=== PATIENT | female | born 1985 | race Caucasian/White ===

== ENCOUNTER 2018-01-27 22:53 | Emergency (ER) | payer MEDICAID ==
[~2018-01-27] VITALS: Ht 165.1 cm; Wt 111.0 kg
[~2018-01-27 22:53] MED LIST: MINO50CA5 PO
[2018-01-27 23:21] VITALS: BP 127/88
== END 2018-01-27 23:23 | disposition home or self-care (01) ==
LOC: ER 22:53
DX: T81.4XXA Infection following a procedure, initial encounter (principal); L02.211 Cutaneous abscess of abdominal wall; I10 Essential (primary) hypertension; J45.909 Unspecified asthma, uncomplicated; G89.29 Other chronic pain; Z88.8 Allergy status to other drugs, medicaments and biological substances
CPT/HCPCS: 10060; 99284; A6449

== ENCOUNTER 2020-08-08 13:53 | Emergency (ER) | payer MEDICAID ==
[~2020-08-08] VITALS: Ht 165.1 cm; Wt 122.7 kg
[2020-08-08 13:56] VITALS: BP 158/105
[2020-08-08] MEDS ORDERED: fluconazole 100mg tablet PO ONE (14:30)
[2020-08-08] MEDS ORDERED: NYSPWD TP (14:37)
== END 2020-08-08 15:20 | disposition home or self-care (01) ==
LOC: ER 13:53
DX: L30.8 Other specified dermatitis (principal); I10 Essential (primary) hypertension; J45.909 Unspecified asthma, uncomplicated; G89.29 Other chronic pain; Z88.8 Allergy status to other drugs, medicaments and biological substances; Z79.899 Other long term (current) drug therapy
CPT/HCPCS: 99283

== ENCOUNTER 2020-11-08 07:26 | Emergency (ER) | payer MEDICAID ==
[~2020-11-08] VITALS: Ht 165.1 cm; Wt 122.7 kg
[~2020-11-08 07:26] MED LIST changes: +NYSPWD TP
[2020-11-08 07:30] VITALS: BP 192/114
[2020-11-08] MEDS ORDERED: ibuprofen tablet 400 MG TABLET PO ONE (10:50)
[2020-11-08] MEDS ORDERED: IBUP-1984 PO (11:12)
[2020-11-08] MEDS ORDERED: AMOX-422 PO (11:12)
== END 2020-11-08 11:19 | disposition home or self-care (01) ==
LOC: ER 07:28
DX: H61.21 Impacted cerumen, right ear (principal); H66.91 Otitis media, unspecified, right ear; I10 Essential (primary) hypertension; J45.909 Unspecified asthma, uncomplicated; G89.29 Other chronic pain; Z88.8 Allergy status to other drugs, medicaments and biological substances; Z79.2 Long term (current) use of antibiotics; Z79.899 Other long term (current) drug therapy
CPT/HCPCS: 69209; 99284; 99285

== ENCOUNTER 2020-12-11 10:18 | Emergency (ER) | payer MEDICAID ==
[~2020-12-11] VITALS: Ht 165.1 cm; Wt 122.7 kg
[2020-12-11 10:38] VITALS: BP 170/105
== END 2020-12-11 12:00 | disposition home or self-care (01) ==
LOC: ER 10:19
DX: H65.01 Acute serous otitis media, right ear (principal); I10 Essential (primary) hypertension; J45.909 Unspecified asthma, uncomplicated; G89.29 Other chronic pain; Z88.8 Allergy status to other drugs, medicaments and biological substances; Z79.2 Long term (current) use of antibiotics; Z79.899 Other long term (current) drug therapy
CPT/HCPCS: 99281; 99283

== ENCOUNTER 2021-05-26 20:29 | Emergency (ER) | payer MEDICAID ==
[~2021-05-26] VITALS: Ht 165.1 cm; Wt 102.2 kg
[2021-05-26 20:43] VITALS: BP 189/111
[2021-05-26] MEDS ORDERED: dexamethasone sod phosphate 10mg/ml inj IM STA (21:47)
[2021-05-26] MEDS ORDERED: AMOX-422 PO (21:48)
[2021-05-26] MEDS ORDERED: amox tr/potassium clavulanate 875/125mg TAB PO ONE (21:50)
== END 2021-05-26 22:28 | disposition home or self-care (01) ==
LOC: ER 20:30
DX: J01.00 Acute maxillary sinusitis, unspecified (principal); I10 Essential (primary) hypertension; J45.909 Unspecified asthma, uncomplicated; G89.29 Other chronic pain; Z88.8 Allergy status to other drugs, medicaments and biological substances; Z79.899 Other long term (current) drug therapy
CPT/HCPCS: 96372; 99283; J1100

== ENCOUNTER 2021-06-06 18:13 | Emergency (ER) | payer MEDICAID ==
[~2021-06-06] VITALS: Ht 165.1 cm; Wt 105.0 kg
[2021-06-07 00:46] VITALS: BP 170/103
[2021-06-07] MEDS ORDERED: NYST15PO4 TOP (01:23)
[2021-06-07] MEDS ORDERED: fluconazole 100mg tablet PO ONE (01:25)
== END 2021-06-07 03:48 | disposition home or self-care (01) ==
LOC: ER 18:14
DX: B37.9 Candidiasis, unspecified (principal); I10 Essential (primary) hypertension; J45.909 Unspecified asthma, uncomplicated; Z88.8 Allergy status to other drugs, medicaments and biological substances
CPT/HCPCS: 99283

== ENCOUNTER 2021-06-12 08:04 | Emergency (ER) | payer MEDICAID ==
[~2021-06-12] VITALS: Ht 165.1 cm; Wt 115.5 kg
[~2021-06-12 08:04] MED LIST changes: +NYST15PO4 TOP
[2021-06-12 08:12] VITALS: BP 169/103
[2021-06-12] MEDS ORDERED: CHLO1LIQ2 PO (09:42)
[2021-06-12] MEDS ORDERED: AMOX-422 PO (09:42)
== END 2021-06-12 09:56 | disposition home or self-care (01) ==
LOC: ER 08:05
DX: K05.10 Chronic gingivitis, plaque induced (principal); I10 Essential (primary) hypertension; J45.909 Unspecified asthma, uncomplicated; G89.29 Other chronic pain; M54.9 Dorsalgia, unspecified; Z88.8 Allergy status to other drugs, medicaments and biological substances; Z79.899 Other long term (current) drug therapy
CPT/HCPCS: 99283

== ENCOUNTER 2021-08-08 15:32 | Emergency (ER) | payer MEDICAID ==
[~2021-08-08] VITALS: Ht 165.1 cm; Wt 115.5 kg
[~2021-08-08 15:32] MED LIST changes: +CHLO1LIQ2 PO
[2021-08-08 15:40] VITALS: BP 170/98
[2021-08-08] MEDS ORDERED: SUMAtriptan succ. 6 MG/0.5ml vial SQ ONE (18:00)
[2021-08-08] MEDS ORDERED: ondansetron 4mg rapidly disintigrating tab PO ONE (18:00)
== END 2021-08-08 18:41 | disposition home or self-care (01) ==
LOC: ER 15:34
DX: R51.9 Headache, unspecified (principal); J45.909 Unspecified asthma, uncomplicated; I10 Essential (primary) hypertension; G89.29 Other chronic pain; M54.9 Dorsalgia, unspecified; Z88.5 Allergy status to narcotic agent
CPT/HCPCS: 96372; 99283; J3030

== ENCOUNTER 2021-09-17 10:14 | Emergency (ER) | payer MEDICAID ==
[~2021-09-17] VITALS: Ht 165.1 cm; Wt 115.9 kg
[2021-09-17 11:47] LABS: CLARITY,URINE CLOUDY (Clear); COLOR,URINE YELLOW (Yellow); GLUCOSE, URINE NEGATIVE (Neg); KETONES,URINE NEGATIVE (Neg); LEUKOCYTE ESTERASE ,URINE NEGATIVE (Neg); NITRITES, URINE NEGATIVE (Neg); OCCULT BLOOD,URINE NEGATIVE (Neg); PROTEIN,URINE NEGATIVE (Neg); UROBILINOGEN,URINE 0.2 E.U/dL (0.2-1.0)
[2021-09-17 11:48] LABS: URINE HCG NEGATIVE (NEG)
[2021-09-17 11:49] LABS: UA COLLECTION TYPE CLN CATCH MIDSTREAM
[2021-09-17 12:19] LABS: SQUAMOUS EPITHELIAL CELL,UR MANY /LPF (FEW)
[2021-09-17 12:22] LABS: BACTERIA,URINE 4+ /HPF (Neg)
[2021-09-17 12:23] LABS: COARSE GRANULAR CAST 0-3 /LPF (NEGATIVE)
[2021-09-17 12:24] LABS: TRANSITIONAL EPI CELLS,URINE FEW /HPF
[2021-09-17 12:25] LABS: RBC,URINE 0-2 /HPF (0-2); WBC,URINE 0-4 /HPF (0-4)
[2021-09-17 12:35] VITALS: BP 175/91
[2021-09-17] MEDS ORDERED: MUPI22OI30 TP (13:06)
== END 2021-09-17 13:40 | disposition home or self-care (01) ==
LOC: ER 10:15
DX: R21 Rash and other nonspecific skin eruption (principal); B37.9 Candidiasis, unspecified; G89.29 Other chronic pain; I10 Essential (primary) hypertension; J45.909 Unspecified asthma, uncomplicated; Z98.890 Other specified postprocedural states; Z88.8 Allergy status to other drugs, medicaments and biological substances; Z79.899 Other long term (current) drug therapy
CPT/HCPCS: 81001; 81025; 99283

== ENCOUNTER 2021-12-30 11:58 | Emergency (ER) | payer MEDICAID ==
[~2021-12-30] VITALS: Ht 165.1 cm; Wt 113.2 kg
[2021-12-30 12:21] VITALS: BP 140/93
--- NOTE | 2021-12-30 12:46 | NUR ---
pt back from xray
== END 2021-12-30 14:06 | disposition home or self-care (01) ==
LOC: ER 11:58
DX: M54.31 Sciatica, right side (principal); I10 Essential (primary) hypertension; J45.909 Unspecified asthma, uncomplicated; G89.29 Other chronic pain; M54.9 Dorsalgia, unspecified; Z88.8 Allergy status to other drugs, medicaments and biological substances; Z79.899 Other long term (current) drug therapy; Z79.2 Long term (current) use of antibiotics
CPT/HCPCS: 73630; 99283

== ENCOUNTER 2023-06-24 10:16 | Emergency (ER) | payer MEDICAID ==
[~2023-06-24] VITALS: Ht 165.1 cm; Wt 107.9 kg
[2023-06-24 10:17] VITALS: BP 145/96; PULSE 98; TEMP 98.3; O2SAT 98
[2023-06-24 10:48] VITALS: RESP 18
[2023-06-24] MEDS ORDERED: CEFD300C3 PO (12:22)
== END 2023-06-24 12:36 | disposition home or self-care (01) ==
LOC: ER 10:17
DX: J40 Bronchitis, not specified as acute or chronic (principal); J01.90 Acute sinusitis, unspecified; I10 Essential (primary) hypertension; Z88.8 Allergy status to other drugs, medicaments and biological substances; Z79.899 Other long term (current) drug therapy
CPT/HCPCS: 99284

== ENCOUNTER 2023-08-07 09:31 | Emergency (ER) | payer MEDICAID ==
[~2023-08-07] VITALS: Ht 165.1 cm; Wt 90.3 kg
[2023-08-07 09:35] VITALS: TEMP 97.7
[2023-08-07 10:10] LABS: BASOPHILS # (AUTO) 0.1 X10'3 (0-0.2); BASOPHILS % (AUTO) 1.2 % (0-1); EOSINOPHILS # (AUTO) 0.2 X10'3 (0-0.9); EOSINOPHILS % (AUTO) 2.4 % (0-6); HEMATOCRIT 39.3 % (35.0-45.0); HEMOGLOBIN 13.1 g/dl (12.0-16.0); LYMPHOCYTES # (AUTO) 1.6 X10'3 (1.1-4.8); LYMPHOCYTES % (AUTO) 21.3 % (21-51); MEAN CORPUSCULAR HEMOGLOBIN 28.2 PG (27.0-31.0); MEAN CORPUSCULAR HGB CONC 33.4 g/dL (33.0-36.5); MEAN CORPUSCULAR VOLUME 84.3 FL (78-98); MEAN PLATELET VOLUME 7.3 FL (7.4-10.4); MONOCYTES # (AUTO) 0.4 X10'3 (0-0.9); NEUTROPHILS # (AUTO) 5.4 X10'3 (1.8-7.7); NEUTROPHILS % (AUTO) 70.1 % (42-75); PLATELET COUNT 297 X10'3 (140-440); RED BLOOD COUNT 4.66 X10'6 (4.20-5.60); RED CELL DISTRIBUTION WIDTH 13.7 % (11.5-14.5); WHITE BLOOD COUNT 7.7 X10'3 (4.5-11.0)
[2023-08-07 10:26] LABS: ALANINE AMINOTRANSFERASE 35 U/L (12-78); ALBUMIN 3.5 G/DL (3.4-5.0); ALBUMIN/GLOBULIN RATIO 0.9 (1.1-1.5); ALKALINE PHOSPHATASE 47 IU/L (46-116); ANION GAP 10 (8-16); ASPARTATE AMINO TRANSFERASE 21 U/L (10-37); BILIRUBIN,TOTAL 0.2 MG/DL (0.1-1.0); BLOOD UREA NITROGEN 10 MG/DL (7-18); CALCIUM 8.9 MG/DL (8.5-10.1); CHLORIDE 104 MMOL/L (99-107); CREATININE 0.83 MG/DL (0.40-0.90); GLUCOSE 99 MG/DL (70-104); POTASSIUM 3.9 MMOL/L (3.5-5.1); SODIUM 140 MMOL/L (135-145); TOTAL PROTEIN 7.5 G/DL (6.4-8.2); eCRCL 84 ML/MIN; eGFR 78 ML/MIN
[2023-08-07 10:35] LABS: PRO BRAIN NATRIURETIC PEPTIDE 129 PG/ML (0-125)
[2023-08-07 11:44] LABS: BETA HCG,QUANTITATIVE < 1.0 mIU/ml
[2023-08-07 14:03] VITALS: BP 155/95; PULSE 82; RESP 18; O2SAT 99
== END 2023-08-07 14:04 | disposition home or self-care (01) ==
LOC: ER 09:32
DX: R42 Dizziness and giddiness (principal); R11.2 Nausea with vomiting, unspecified; R10.2 Pelvic and perineal pain; I10 Essential (primary) hypertension; J45.909 Unspecified asthma, uncomplicated; R06.00 Dyspnea, unspecified; G89.29 Other chronic pain; Z88.8 Allergy status to other drugs, medicaments and biological substances; Z79.899 Other long term (current) drug therapy
CPT/HCPCS: 36415; 70450; 71045; 80053; 83880; 84484; 84702; 85025; 93005; 99285

== ENCOUNTER 2024-12-08 09:17 | Emergency (ER) | payer MEDICAID ==
[~2024-12-08] VITALS: Ht 165.1 cm; Wt 105.6 kg
[~2024-12-08 09:17] MED LIST changes: +NYST15PO13 TOP; -NYST15PO4 TOP
[2024-12-08 09:42] LABS: MEAN PLATELET VOLUME 7.2 FL (7.4-10.4); RED CELL DISTRIBUTION WIDTH 13.1 % (11.5-14.5)
[2024-12-08 10:08] LABS: CREATININE 0.79 MG/DL (0.40-0.90); TOTAL CARBON DIOXIDE 27.7 MMOL/L (24-32); eCRCL 87 ML/MIN; eGFR 81 ML/MIN
[2024-12-08 11:08] LABS: LEUKOCYTE ESTERASE ,URINE NEGATIVE (Neg); NITRITES, URINE NEGATIVE (Neg); OCCULT BLOOD,URINE NEGATIVE (Neg)
[2024-12-08 11:09] LABS: URINE HCG NEGATIVE (NEG)
[2024-12-08 11:16] LABS: UA COLLECTION TYPE CLN CATCH MIDSTREAM
[2024-12-08] MEDS ORDERED: ONDA-243 PO (11:53)
--- NOTE | 2024-12-08 11:54 | Physician Documentation ---
History of Present Illness Chief Complaint: Flank Pain Stated Complaint: VOMITING Time Seen by MD: 10:30 Primary Medical Doctor: Winston Mode of Arrival: Other HPI This 39-year-old female presents to the ED with a complaint of vomiting since y evening at 11:00 p.m.. Has a complains nonspecific abdominal pain that radiates on her flank to her anterior. She denies any right upper quadrant pain denies any fevers.. Denies any history of kidney stones. Day of Onset: Dec 08, 2024 Last Menstrual Period: Nov 19, 2024 Medication Reconciliation Allergies: Coded Allergies: methylphenidate (Verified Allergy, Unknown, 12/08/24) Scheduled Chlorhexidine (Chlorhexidine Flavor), 5 ML PO gates Minocycline Hcl (minocycline capsule), 1 CAP PO DAILY, (Reported) Nystatin (NYSTOP powder), 1 APPLIC TP Q4H Nystatin (Nystatin), 1 APPLIC TOP Q12H Scheduled PRN ONDANSETRON ODT 4mg tablet (Ondansetron Odt), 1 TAB PO Q6H PRN PRN for nausea/vomiting Past Medical History Past Medical History: Vertigo, Hypertension, Asthma, Chronic Back Pain, *DERMATOLOGY* Other Past Surgical History: Back surgery lower back 2018 Last Menstrual Period: Nov 19, 2024 Smoking Status: Never smoker Alcohol Use: None Drug Use: none Lives with: Spouse Lives In: Home Occupation: disabled Review of Systems All Other Systems at this time: Reviewed and Negative ROS As stated above in the HPI, otherwise all systems are reviewed and negative. Physical Exam Vital Signs: Temperature: 97.6, Source: Oral, Heart Rate: 83, Respiratory Rate: 16, BP: 163/91, Pulse Oximetry: 100, Weight: 105.600 Oxygen Flow Rate: 0 Physical Exam General: Alert, no apparent distress. Cardiovascular: Regular rate and rhythm, no murmurs. Gastrointestinal: Soft, nontender, nondistended. Bowels sounds present,negative CVA tenderness Extremities: Normal range of motion, no deformity. Neurologic: Oriented x4. Psychiatric: Normal mood and affect. Skin: Normal color, warm and dry. No edema, no ecchymosis. Progress Results/Orders Results/Orders Vital Signs 12/08/24 12/08/24 12/08/24 09:19 09:50 09:51 Temp 97.6 97.6 Pulse 86 83 Resp 16 16 16 B/P (MAP) 169/88 163/91 (115) Pulse Ox 99 100 O2 Flow Rate 0 0 Laboratory Tests Test 12/08/24 09:36 12/08/24 10:53 White Blood Count 14.3 H Red Blood Count 4.47 Hemoglobin 12.7 Hematocrit 37.8 Mean Corpuscular Volume 84.5 Mean Corpuscular Hemoglobin 28.4 Mean Corpuscular Hemoglobin Concent 33.5 Red Cell Distribution Width 13.1 Platelet Count 327 Mean Platelet Volume 7.2 L Neutrophils (%) (Auto) 83.1 H Lymphocytes (%) (Auto) 12.3 L Monocytes (%) (Auto) 3.8 Eosinophils (%) (Auto) 0.2 Basophils (%) (Auto) 0.6 Neutrophils # (Auto) 11.9 H Lymphocytes # (Auto) 1.8 Monocytes # (Auto) 0.6 Eosinophils # (Auto) 0.0 Basophils # (Auto) 0.1 CBC Comment Sodium Level 137 Potassium Level 3.3 L Chloride Level 98 L Carbon Dioxide Level 27.7 Anion Gap 11 Blood Urea Nitrogen 8 Creatinine 0.79 Estimated GFR/1.73 m2 81 BUN/Creatinine Ratio 10.1 Glucose Level 126 H Calcium Level 8.7 Total Bilirubin 0.5 Aspartate Amino Transf (AST/SGOT) 15 Alanine Aminotransferase (ALT/SGPT) 30 Alkaline Phosphatase 48 Total Protein 7.6 Albumin 3.6 Globulin 4.0 Albumin/Globulin Ratio 0.9 L Lipase 36 Chemistry Comments Urine Specimen Description Cln catch midstream Urine Color Yellow Urine Clarity Clear Urine pH 7.0 Urine Specific [place] 1.010 Urine Protein Negative Urine Glucose (UA) Negative Urine Ketones Negative Urine Occult Blood Negative Urine Nitrite Negative Urine Bilirubin Negative Urine Urobilinogen 1.0 Urine Leukocyte Esterase Negative Urine Culture Indicated Not ind Volume Urine Centrifuged 10 ml Urine HCG, Qualitative Negative Urine Comment Medical Decision Making Findings This patient initially was concerning for potential kidney stone gastroenteritis gallbladder pathology and lumbosacral strain. She denied any injury she was mostly nontender in her abdomen. Her laboratory values had slight increase in white count which can be attributable to her vomiting. Urine was unremarkable no signs of RBCs or leukocytes I did offer the patient a CT scan for further evaluation but I also advised that I would a did not suspect that it would find the causative reason for her abdominal symptoms. Currently suspecting viral gastroenteritis. In his send her home with a Reynaldo in follow up with the primary care Differential Dx:Considerations: Include: AAA, -Complete, - Incomplete, -Inevitable, -Missed, -Threatened, Abruptio placentae, Angina/MT, Aortic dissection, Appendicitis, Bowel obstruction, Cholangitis, Cholelithasis, Constipation, Diverticular disease, Esophageal rupture, Esophagitis, Gastritis/PUD, Gastroenteritis, GI hemorrhage, Hernia, Hepatitis, Inflammatory BD, Ischemic bowel, Ovarian cyst/torsion, Pancreatitis, PID, Porphyria, Trauma, intraabdominal, Urinary obstruction, Urinary tract infection, Urolithiasis, Other Departure Disposition: HOME / SELF CARE / HOMELESS Impression: Primary Impression: Gastroenteritis Condition: Stable Discharge Instructions: Viral Gastroenteritis, Adult, [id number] Referrals: NO PRIMARY CARE PROVIDER (PCP) Prescriptions ONDANSETRON ODT 4mg tablet (ONDANSETRON ODT) 4 Mg Tab.rapdis 1 TAB PO Q6H PRN PRN for nausea/vomiting for 4 Days, #16 TAB 0 Refills Prov: JUSTIN ADAM NP 12/08/24 Education Educated: Patient Educated regarding: diagnosis Signature Scribe Signature: g Attestation: Scribed for Justin Adam Pipe Insulator by Justin Vizcarra NP . 12/08/24 11:54 JUSTIN ADAM NP Dec 08, 2024 11:54
[2024-12-08 12:08] VITALS: BP 175/96; PULSE 72; RESP 16; TEMP 97.6; O2SAT 100
== END 2024-12-08 12:08 | disposition home or self-care (01) ==
LOC: ER 09:17
DX: K52.9 Noninfective gastroenteritis and colitis, unspecified (principal); J45.909 Unspecified asthma, uncomplicated; I10 Essential (primary) hypertension; Z88.8 Allergy status to other drugs, medicaments and biological substances; Z79.899 Other long term (current) drug therapy
CPT/HCPCS: 36415; 80053; 81003; 81025; 83690; 85025; 99283